=== PATIENT | female | born 1990 | race Caucasian/White ===

== ENCOUNTER → 2016-11-28 | Outpatient (CLI) | payer OTHER ==
[~2016-11-28] MED LIST: ACET25TA GT; AMBI12.52 PO; BUSP5TA PO; CELE10TA PO; CELE40TA PO; CLON1TAB PO; FOLIPOW28 XX; GABA100C PO; IBUP800T OR; KLON1TAB PO; LIDO1DIS2 TD; MEDR1VL IM; NEUR300C PO; PERCOCET; PRENTAB74 PO; SERO200T2 PO; SIME80TA PO; SUMA100T2 PO; TYLENOL #3 OR; ULTR50TA PO; VALI2TAB PO; VICO5TAB PO; ZONI50CA PO; [UNRECOGNIZED DRUG - CODE] PO; [UNRECOGNIZED DRUG - OTHER]; zonisamide PO
[2016-11-28 18:22] LABS: ALBUMIN 4.1 GM/DL (3.2-5.2); ALBUMIN/GLOBULIN RATIO 1.28 (1.00-1.93); ALKALINE PHOSPHATASE 48 U/L (45-117); ALT/SGPT 68 U/L (12-78); ANION GAP 9 MEQ/L (8-16); AST/SGOT 58 U/L (15-37); BILIRUBIN,TOTAL 0.2 MG/DL (0.2-1.0); BLOOD UREA NITROGEN 11 MG/DL (7-18); CALCIUM LEVEL 9.3 MG/DL (8.5-10.1); CARBON DIOXIDE LEVEL 24 MEQ/L (21-32); CHLORIDE LEVEL 110 MEQ/L (98-107); CREATININE FOR GFR 0.73 MG/DL (0.55-1.02); GLOMERULAR FILTRATION RATE > 60.0 (>60); GLUCOSE, FASTING 77 MG/DL (70-105); POTASSIUM SERUM 3.9 MEQ/L (3.5-5.1); SODIUM LEVEL 143 MEQ/L (136-145); TOTAL PROTEIN 7.3 GM/DL (6.4-8.2)
[2016-11-28 18:55] LABS: BASO % 0.5 % (0.0-1.0); EOS # 0.2 K/mm3 (0.0-0.50); EOS % 2.4 % (0.0-3.0); LARGE UNSTAINED CELL # 0.1 K/mm3 (0.0-0.4); LARGE UNSTAINED CELL % 1.9 % (0.0-4.0); LYMPH # 1.9 K/mm3 (1.5-6.5); LYMPH % 25.4 % (24.0-44.0); MEAN CORPUSCULAR VOLUME 90.9 fl (80.0-96.0); MONO # 0.4 K/mm3 (0.0-0.8); NEUTROPHILS # 4.9 K/mm3 (1.8-7.7); NEUTROPHILS % 64.8 % (36.0-66.0); PLATELET COUNT, AUTOMATED 245 k/mm3 (150-450); RED CELL DISTRIBUTION WIDTH 11.9 % (11.5-14.5); WHITE BLOOD COUNT 7.6 K/mm3 (4.0-10.0)
[2016-11-28 19:10] LABS: CONTROL LINE UCG INT CTR LINE PRESENT
[2016-11-29 08:43] LABS: HIV SCRN NEGATIVE (NEGATIVE); HIV SCRN1 NEGATIVE (NEGATIVE)
[2016-11-29 08:44] LABS: CONTROL LINE INT CTR LINE PRESENT
== END ==
LOC: M LAB 17:02
PROVIDERS: ATTEND Family Medicine
DX: F11.20 Opioid dependence, uncomplicated (principal)

== ENCOUNTER 2016-12-18 13:57 | Emergency (ER) | payer OTHER ==
[2016-12-18 14:51] LABS: BASO % 0.5 % (0.0-1.0); EOS # 0.3 K/mm3 (0.0-0.50); EOS % 5.2 % (0.0-3.0); LARGE UNSTAINED CELL # 0.1 K/mm3 (0.0-0.4); LARGE UNSTAINED CELL % 1.3 % (0.0-4.0); LYMPH # 2.3 K/mm3 (1.5-6.5); LYMPH % 35.5 % (24.0-44.0); MEAN CORPUSCULAR HEMOGLOBIN 30.6 pg (27.0-33.0); MEAN CORPUSCULAR HGB CONC 33.8 g/dl (32.0-36.5); MEAN CORPUSCULAR VOLUME 90.6 fl (80.0-96.0); MONO # 0.3 K/mm3 (0.0-0.8); MONO % 4.5 % (0.0-5.0); NEUTROPHILS # 3.3 K/mm3 (1.8-7.7); NEUTROPHILS % 53.1 % (36.0-66.0); PLATELET COUNT, AUTOMATED 204 k/mm3 (150-450); WHITE BLOOD COUNT 6.1 K/mm3 (4.0-10.0)
[2016-12-18 15:13] LABS: ALBUMIN 3.9 GM/DL (3.2-5.2); ALBUMIN/GLOBULIN RATIO 1.34 (1.00-1.93); ALKALINE PHOSPHATASE 40 U/L (45-117); ALT/SGPT 81 U/L (12-78); ANION GAP 9 MEQ/L (8-16); AST/SGOT 50 U/L (15-37); BILIRUBIN,TOTAL 0.3 MG/DL (0.2-1.0); BLOOD UREA NITROGEN 10 MG/DL (7-18); CALCIUM LEVEL 8.6 MG/DL (8.5-10.1); CARBON DIOXIDE LEVEL 22 MEQ/L (21-32); CHLORIDE LEVEL 113 MEQ/L (98-107); CREATININE FOR GFR 0.88 MG/DL (0.55-1.02); GLOMERULAR FILTRATION RATE > 60.0 (>60); GLUCOSE, FASTING 78 MG/DL (70-105); POTASSIUM SERUM 3.8 MEQ/L (3.5-5.1); SODIUM LEVEL 144 MEQ/L (136-145); TOTAL PROTEIN 6.8 GM/DL (6.4-8.2)
--- NOTE | 2016-12-18 15:43 | EDDOCDS ---
Nurse's Notes [facility] Name: Manju Nair Age: 26 yrs Sex: Female : 1990 Arrival Date: 12/18/2016 Time: 13:57 Bed TR8 Private MD: Diagnosis: Edema, unspecified Presentation: 12/18 14:00 Presenting complaint: Patient states: hand and feet swelling since Monday, painful. ttb Seen at and told to come to ER for evaluation. Adult Sepsis Screening: The patient does not have new or worsening altered mentation. Patient's respiratory rate is less than 22. Systolic blood pressure is greater than 100. Patient has a qSOFA score of 0- Negative Sepsis Screen. Suicide/Homicide risk assessment- the patient denies having any suicidal and/or homicidal ideations and does not present with any other emotional, behavioral or mental health complaints. 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 Transition of care: patient was not received from another setting of care. 14:00 Acuity: ARELI Level 3 ttb 14:00 Method Of Arrival: Walkin/Carried/Asstd ttb Triage Assessment: 14:04 General: Appears in no apparent distress, well nourished, well groomed, Behavior is ttb anxious, appropriate for age, cooperative, pleasant. Pain: Denies pain. Location: bilat hands and feet. HIV screening NA for this visit Offered previously. Neurological: Level of Consciousness is awake, alert, Reports numbness. Cardiovascular: Chest pain is denied. Respiratory: Airway is patent Respiratory effort is even, unlabored, Denies cough, shortness of breath. GI: Denies nausea, vomiting. Derm: Skin is normal. Musculoskeletal: Range of motion intact in all extremities. 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 Celexa 40 mg Oral tab 1 tab once daily (Last dose: 12/18/2016 07:00) 2. Diamox Sequels 500 mg Oral cpER 1 cap 2 times per day (Last dose: 12/18/2016 07:00) 3. zonisamide 25 mg oral cap dialy (Last dose: 12/17/2016 20:00) 4. Requip 0.5 mg Oral tab Once at dinner and HS (Last dose: 12/17/2016) 5. methadone 40 mg Oral TbSO 1 tab once daily pt started 3 weeks ago (Last dose: 12/18/2016 07:00) 6. ibuprofen 800 mg Oral tab 1 tab PRN (Last dose: 12/18/2016 07:00) 7. Depo-Provera IM every 3 mo - PMHx: opioid dependence; Hepatitis C; Pseudo Tumor Cerebri; - PSHx: Cesearean Section; Tonsillectomy; - Social history: Smoking status: Patient uses tobacco products, current every day smoker. Patient/guardian denies using alcohol, street drugs, No barriers to communication noted, The patient speaks fluent Spanish, Speaks appropriately for age. - Family history: Not pertinent. - : The pt / caregiver states he / she is not on anticoagulants. Home medication list is obtained from the patient. - Exposure Risk Screening:: None identified. Screenin:40 Screening information is obtained from the patient. Fall risk: No risks identified. ms18 Assistance ADL's: requires no assistance with activities of daily living. Abuse/DV Screen: The patient / caregiver reports he/she is: not in a situation that causes fear, pain or injury. Nutritional screening: No deficits noted. Advance Directives: There is no living will. home support is adequate. Assessment: 15:40 General: Appears in no apparent distress, comfortable, obese, Behavior is appropriate ms18 for age, cooperative. Pain: Denies pain. Neurological: Level of Consciousness is awake, alert, obeys commands, Oriented to person, place, time. Respiratory: Airway is patent Respiratory effort is even, unlabored, Respiratory pattern is regular. Derm: Skin is pink, warm & dry. Vital Signs: 13:58 BP 135 / 62; Pulse 78; Resp 16; Temp 98.1(O); Pulse Ox 98% on R/A; Weight 114.76 kg lr2 (R); Height 5 ft. 1 in. (154.94 cm) (R); Pain 0/10; 15:26 BP 112 / 58; Pulse 78; Resp 18; Temp 99.2(TE); Pulse Ox 97% on R/A; Pain 0/10; ar3 13:58 Body Mass Index 47.80 (114.76 kg, 154.94 cm) lr2 Vitals: 13:58 Log In Time: December 18, 2016 at 13:57. lr2 ED Course: 13:58 Patient visited by Olga Cain. lr2 13:58 Patient moved to Waiting lr2 13:59 Patient moved to Pre RCE lr2 14:01 Triage Initiated ttb 14:06 Patient moved to Triage 2 ttb 14:13 Parish Rosenberg PA is PHCP. btw 14:13 Lazarus Lyman MD is Attending Physician. btw 14:13 Patient visited by Parish Rosenberg PA. btw 14:19 Patient moved to I5 / M5 ar3 14:19 Patient moved to Triage 2 ar3 14:39 Patient moved to TR1 ar3 14:39 Complete Comphrensive Metabolic Sent. ar3 14:40 CBC with Diff Sent. ar3 14:42 [facility] Payment Agreement was scanned into [employer] and attached to record. jp5 15:23 Patient moved to PR1 / 25 ms18 15:27 Patient visited by Brooke Maria PCA. ar3 15:40 Patient visited by Donna Houston RN. ms18 15:40 Patient moved to TR8 ms18 15:40 The patient / caregiver is instructed regarding the plan of care and ED course. Patient ms18 has correct armband on for positive identification. Property sent home with patient. :Personal belongings accompany Pt. 15:40 No IV's were initiated during this patient's visit. No procedures done that require ms18 assistance. Order Results: Lab Order: CBC with Diff; SPEC'M 12/18/16 14:39 Test: WHITE BLOOD COUNT; Value: 6.1; Range: 4.0-10.0; Units: K/mm3; Status: F Test: RED BLOOD COUNT; Value: 4.23; Range: 4.00-5.40; Units: M/mm3; Status: F Test: HEMOGLOBIN; Value: 12.9; Range: 12.0-16.0; Units: g/dl; Status: F Test: HEMATOCRIT; Value: 38.3; Range: 36.0-47.0; Units: %; Status: F Test: MEAN CORPUSCULAR VOLUME; Value: 90.6; Range: 80.0-96.0; Units: fl; Status: F Test: MEAN CORPUSCULAR HEMOGLOBIN; Value: 30.6; Range: 27.0-33.0; Units: pg; Status: F Test: MEAN CORPUSCULAR HGB CONC; Value: 33.8; Range: 32.0-36.5; Units: g/dl; Status: F Test: RED CELL DISTRIBUTION WIDTH; Value: 12.0; Range: 11.5-14.5; Units: %; Status: F Test: PLATELET COUNT, AUTOMATED; Value: 204; Range: 150-450; Units: k/mm3; Status: F Test: NEUTROPHILS %; Value: 53.1; Range: 36.0-66.0; Units: %; Status: F Test: LYMPH %; Value: 35.5; Range: 24.0-44.0; Units: %; Status: F Test: MONO %; Value: 4.5; Range: 0.0-5.0; Units: %; Status: F Test: EOS %; Value: 5.2; Range: 0.0-3.0; Abnormal: Above high normal; Units: %; Status: F Test: BASO %; Value: 0.5; Range: 0.0-1.0; Units: %; Status: F Test: LARGE UNSTAINED CELL %; Value: 1.3; Range: 0.0-4.0; Units: %; Status: F Test: NEUTROPHILS #; Value: 3.3; Range: 1.8-7.7; Units: K/mm3; Status: F Test: LYMPH #; Value: 2.3; Range: 1.5-6.5; Units: K/mm3; Status: F Test: MONO #; Value: 0.3; Range: 0.0-0.8; Units: K/mm3; Status: F Test: EOS #; Value: 0.3; Range: 0.0-0.50; Units: K/mm3; Status: F Test: BASO #; Value: 0.0; Range: 0.0-0.2; Units: K/mm3; Status: F Test: LARGE UNSTAINED CELL #; Value: 0.1; Range: 0.0-0.4; Units: K/mm3; Status: F Lab Order: Complete Comphrensive Metabolic; SPEC'M 12/18/16 14:39 Test: GLUCOSE, FASTING; Value: 78; Range: 70-105; Units: MG/DL; Status: F Test: BLOOD UREA NITROGEN; Value: 10; Range: 7-18; Units: MG/DL; Status: F Test: CREATININE FOR GFR; Value: 0.88; Range: 0.55-1.02; Units: MG/DL; Status: F Test: GLOMERULAR FILTRATION RATE; Value: > 60.0; Range: >60; Status: F Test: SODIUM LEVEL; Value: 144; Range: 136-145; Units: MEQ/L; Status: F Test: POTASSIUM SERUM; Value: 3.8; Range: 3.5-5.1; Units: MEQ/L; Status: F Test: CHLORIDE LEVEL; Value: 113; Range: 98-107; Abnormal: Above high normal; Units: MEQ/L; Status: F Test: CARBON DIOXIDE LEVEL; Value: 22; Range: 21-32; Units: MEQ/L; Status: F Test: ANION GAP; Value: 9; Range: 8-16; Units: MEQ/L; Status: F Test: CALCIUM LEVEL; Value: 8.6; Range: 8.5-10.1; Units: MG/DL; Status: F Test: AST/SGOT; Value: 50; Range: 15-37; Abnormal: Above high normal; Units: U/L; Status: F Test: ALT/SGPT; Value: 81; Range: 12-78; Abnormal: Above high normal; Units: U/L; Status: F Test: ALKALINE PHOSPHATASE; Value: 40; Range: 45-117; Abnormal: Below low normal; Units: U/L; Status: F Test: BILIRUBIN,TOTAL; Value: 0.3; Range: 0.2-1.0; Units: MG/DL; Status: F Test: TOTAL PROTEIN; Value: 6.8; Range: 6.4-8.2; Units: GM/DL; Status: F Test: ALBUMIN; Value: 3.9; Range: 3.2-5.2; Units: GM/DL; Status: F Test: ALBUMIN/GLOBULIN RATIO; Value: 1.34; Range: 1.00-1.93; Status: F Test Note: ; Units are mL/min/1.73 m2 Chronic Kidney Disease Staging per NKF: Stage I & II GFR >=60 Normal to Mildly Decreased Stage III GFR 30-59 Moderately Decreased Stage IV GFR 15-29 Severely Decreased Stage V GFR <15 Very Little GFR Left ESRD GFR <15 on BURLAP WORKER Outcome: 15:23 Discharge ordered by Provider. btw 15:40 Discharge Assessment: Patient awake, alert and oriented x 3. No cognitive and/or ms18 functional deficits noted. Patient verbalized understanding of disposition instructions. patient administered narcotics - no. The following High Risk Discharge criteria are identified: None. Discharged to home ambulatory. Condition: good Condition: stable. Discharge instructions given to patient, Instructed on discharge instructions, follow up and referral plans. Demonstrated understanding of instructions, Pt was receptive of discharge instructions/ teaching. No special radiology studies were completed. 15:42 Patient left the ED. ms18 Signatures: Brooke Maria, HAN MECHANICAL ENGINEERING MANAGER ar3 Parish Rosenberg PA PA btw Lamar Vaughan, RN RN Donna HuRN RN ms18 Nayan Alvarez jp5 Olga Cain2 MTDPark
--- NOTE | 2016-12-18 15:43 | EDDOCDS ---
Physician Documentation [facility] Name: Manju Nair Age: 26 yrs Sex: Female : 1990 Arrival Date: 12/18/2016 Time: 13:57 Bed TR8 Private MD: Disposition: 12/18/16 15:23 Discharged to Home/Self Care. Impression: Edema, unspecified. - Condition is Stable. - Discharge Instructions: Edema, [id number]. - Medication Reconciliation, Local Pharmacy Hours form. - Follow up: Private Physician; When: Call to arrange an appointment; Reason: Further diagnostic work-up, Recheck today's complaints, Continuance of care. - Problem is new. - Symptoms are unchanged. Historical: - Allergies: Cipro PO; - Home Meds: 1. Celexa 40 mg Oral tab 1 tab once daily (Last dose: 12/18/2016 07:00) 2. Diamox Sequels 500 mg Oral cpER 1 cap 2 times per day (Last dose: 12/18/2016 07:00) 3. zonisamide 25 mg oral cap dialy (Last dose: 12/17/2016 20:00) 4. Requip 0.5 mg Oral tab Once at dinner and HS (Last dose: 12/17/2016) 5. methadone 40 mg Oral TbSO 1 tab once daily pt started 3 weeks ago (Last dose: 12/18/2016 07:00) 6. ibuprofen 800 mg Oral tab 1 tab PRN (Last dose: 12/18/2016 07:00) 7. Depo-Provera IM every 3 mo - PMHx: opioid dependence; Hepatitis C; Pseudo Tumor Cerebri; - PSHx: Cesearean Section; Tonsillectomy; - Social history: Smoking status: Patient uses tobacco products, current every day smoker. Patient/guardian denies using alcohol, street drugs, No barriers to communication noted, The patient speaks fluent Kazakh, Speaks appropriately for age. - Family history: Not pertinent. - : The pt / caregiver states he / she is not on anticoagulants. Home medication list is obtained from the patient. - Exposure Risk Screening:: None identified. 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 1 in. (154.94 cm) (R); Pain 0/10; 15:26 BP 112 / 58; Pulse 78; Resp 18; Temp 99.2(TE); Pulse Ox 97% on R/A; Pain 0/10; ar3 13:58 Body Mass Index 47.80 (114.76 kg, 154.94 cm) lr2 MDM: 14:34 CBC with Diff Ordered. EDMS 14:34 Complete Comphrensive Metabolic Ordered. EDMS 14:42 [facility] Payment Agreement was scanned into [employer] and attached to record. jp5 14:42 Financial registration complete. jp5 15:22 CBC with Diff Reviewed. btw 15:22 Complete Comphrensive Metabolic Reviewed. btw Signatures: Dispatcher [employer] EDMS Parish Rosenberg PA PA btw Lamar Vaughan RN RN ttb Donna Houston RN RN ms18 Nayan Alvarez jp5 The chart was reviewed and I authenticate all verbal orders and agree with the evaluation and treatment provided.Attachments: 14:42 [facility] Payment Agreement jp5 MTDD
--- NOTE | 2016-12-20 16:44 | EDDOCDS ---
Physician Documentation [facility] Name: Manju Nair Age: 26 yrs Sex: Female : 1990 Arrival Date: 12/18/2016 Time: 13:57 Bed TR8 Private MD: Disposition: 12/18/16 15:23 Discharged to Home/Self Care. Impression: Edema, unspecified. - Condition is Stable. - Discharge Instructions: Edema, [id number]. - Medication Reconciliation, Local Pharmacy Hours form. - Follow up: Private Physician; When: Call to arrange an appointment; Reason: Further diagnostic work-up, Recheck today's complaints, Continuance of care. - Problem is new. - Symptoms are unchanged. Historical: - Allergies: Cipro PO; - Home Meds: 1. Celexa 40 mg Oral tab 1 tab once daily (Last dose: 12/18/2016 07:00) 2. Diamox Sequels 500 mg Oral cpER 1 cap 2 times per day (Last dose: 12/18/2016 07:00) 3. zonisamide 25 mg oral cap dialy (Last dose: 12/17/2016 20:00) 4. Requip 0.5 mg Oral tab Once at dinner and HS (Last dose: 12/17/2016) 5. methadone 40 mg Oral TbSO 1 tab once daily pt started 3 weeks ago (Last dose: 12/18/2016 07:00) 6. ibuprofen 800 mg Oral tab 1 tab PRN (Last dose: 12/18/2016 07:00) 7. Depo-Provera IM every 3 mo - PMHx: opioid dependence; Hepatitis C; Pseudo Tumor Cerebri; - PSHx: Cesearean Section; Tonsillectomy; - Social history: Smoking status: Patient uses tobacco products, current every day smoker. Patient/guardian denies using alcohol, street drugs, No barriers to communication noted, The patient speaks fluent [place], Speaks appropriately for age. - Family history: Not pertinent. - : The pt / caregiver states he / she is not on anticoagulants. Home medication list is obtained from the patient. - Exposure Risk Screening:: None identified. 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 1 in. (154.94 cm) (R); Pain 0/10; 15:26 BP 112 / 58; Pulse 78; Resp 18; Temp 99.2(TE); Pulse Ox 97% on R/A; Pain 0/10; ar3 13:58 Body Mass Index 47.80 (114.76 kg, 154.94 cm) lr2 MDM: 14:34 CBC with Diff Ordered. EDMS 14:34 Complete Comphrensive Metabolic Ordered. EDMS 14:42 [facility] [place] [facility] Payment Agreement was scanned into [employer] and attached to record. jp5 14: Financial registration complete. jp5 15:22 CBC with Diff Reviewed. btw 15:22 Complete Comphrensive Metabolic Reviewed. bt 12/19 10:26 T-Sheet-- Draft Copy was scanned into [employer] and attached to record. gb Signatures: Dispatcher [employer] EDMS Kalpana Montero, Reg Reg gb Parish Rosenberg, JENNYFER PA btw Lamar Vaughan, RN RN ttb Donna HoustonRN RN ms18 Nayan Alvarez jp5 The chart was reviewed and I authenticate all verbal orders and agree with the evaluation and treatment provided.Attachments: 12/18 14:42 [facility] Payment Agreement jp5 12/19 10:26 T-Sheet-- Draft Copy gb Chart Complete MTDD
--- NOTE | 2016-12-20 16:44 | EDDOCDS ---
Nurse's Notes [facility] Name: Manju Nair Age: 26 yrs Sex: Female : 1990 Arrival Date: 12/18/2016 Time: 13:57 Bed TR8 Private MD: Diagnosis: Edema, unspecified Presentation: 12/18 14:00 Presenting complaint: Patient states: hand and feet swelling since Monday, painful. ttb Seen at and told to come to ER for evaluation. Adult Sepsis Screening: The patient does not have new or worsening altered mentation. Patient's respiratory rate is less than 22. Systolic blood pressure is greater than 100. Patient has a qSOFA score of 0- Negative Sepsis Screen. Suicide/Homicide risk assessment- the patient denies having any suicidal and/or homicidal ideations and does not present with any other emotional, behavioral or mental health complaints. Status: Patient is not a consulting services project manager or dependent. Transition of care: patient was not received from another setting of care. 14:00 Acuity: ARELI Level 3 ttb 14:00 Method Of Arrival: Walkin/Carried/Asstd ttb Triage Assessment: 14:04 General: Appears in no apparent distress, well nourished, well groomed, Behavior is ttb anxious, appropriate for age, cooperative, pleasant. Pain: Denies pain. Location: bilat hands and feet. HIV screening NA for this visit Offered previously. Neurological: Level of Consciousness is awake, alert, Reports numbness. Cardiovascular: Chest pain is denied. Respiratory: Airway is patent Respiratory effort is even, unlabored, Denies cough, shortness of breath. GI: Denies nausea, vomiting. Derm: Skin is normal. Musculoskeletal: Range of motion intact in all extremities. FALL INTERN: 14:04 LMP N/A - control method ttb Historical: - Allergies: Cipro PO; - Home Meds: 1. Celexa 40 mg Oral tab 1 tab once daily (Last dose: 12/18/2016 07:00) 2. Diamox Sequels 500 mg Oral cpER 1 cap 2 times per day (Last dose: 12/18/2016 07:00) 3. zonisamide 25 mg oral cap dialy (Last dose: 12/17/2016 20:00) 4. Requip 0.5 mg Oral tab Once at dinner and HS (Last dose: 12/17/2016) 5. methadone 40 mg Oral TbSO 1 tab once daily pt started 3 weeks ago (Last dose: 12/18/2016 07:00) 6. ibuprofen 800 mg Oral tab 1 tab PRN (Last dose: 12/18/2016 07:00) 7. Depo-Provera IM every 3 mo - PMHx: opioid dependence; Hepatitis C; Pseudo Tumor Cerebri; - PSHx: Cesearean Section; Tonsillectomy; - Social history: Smoking status: Patient uses tobacco products, current every day smoker. Patient/guardian denies using alcohol, street drugs, No barriers to communication noted, The patient speaks fluent Latvian, Speaks appropriately for age. - Family history: Not pertinent. - : The pt / caregiver states he / she is not on anticoagulants. Home medication list is obtained from the patient. - Exposure Risk Screening:: None identified. Screenin:40 Screening information is obtained from the patient. Fall risk: No risks identified. ms18 Assistance ADL's: requires no assistance with activities of daily living. Abuse/DV Screen: The patient / caregiver reports he/she is: not in a situation that causes fear, pain or injury. Nutritional screening: No deficits noted. Advance Directives: There is no living will. home support is adequate. Assessment: 15:40 General: Appears in no apparent distress, comfortable, obese, Behavior is appropriate ms18 for age, cooperative. Pain: Denies pain. Neurological: Level of Consciousness is awake, alert, obeys commands, Oriented to person, place, time. Respiratory: Airway is patent Respiratory effort is even, unlabored, Respiratory pattern is regular. Derm: Skin is pink, warm & dry. Vital Signs: 13:58 BP 135 / 62; Pulse 78; Resp 16; Temp 98.1(O); Pulse Ox 98% on R/A; Weight 114.76 kg lr2 (R); Height 5 ft. 1 in. (154.94 cm) (R); Pain 0/10; 15:26 BP 112 / 58; Pulse 78; Resp 18; Temp 99.2(TE); Pulse Ox 97% on R/A; Pain 0/10; ar3 13:58 Body Mass Index 47.80 (114.76 kg, 154.94 cm) lr2 Vitals: 13:58 Log In Time: December 18, 2016 at 13:57. lr2 ED Course: 13:58 Patient visited by Olga Cain. lr2 13:58 Patient moved to Waiting lr2 13:59 Patient moved to Pre RCE lr2 14:01 Triage Initiated ttb 14:06 Patient moved to Triage 2 ttb 14:13 Parish Rosenberg PA is PHCP. btw 14:13 Lazarus Lyman MD is Attending Physician. btw 14:13 Patient visited by Parish Rosenberg PA. btw 14:19 Patient moved to I5 / M5 ar3 14:19 Patient moved to Triage 2 ar3 14:39 Patient moved to TR1 ar3 14:39 Complete Comphrensive Metabolic Sent. ar3 14:40 CBC with Diff Sent. ar3 14:42 [facility] [place] was scanned into [employer] and attached to record. jp5 15:23 Patient moved to PR1 / 25 ms18 15:27 Patient visited by Brooke Maria PCA. ar3 15:40 Patient visited by Donna Houston RN. ms18 15:40 Patient moved to TR8 ms18 15:40 The patient / caregiver is instructed regarding the plan of care and ED course. Patient ms18 has correct armband on for positive identification. Property sent home with patient. :Personal belongings accompany Pt. 15:40 No IV's were initiated during this patient's visit. No procedures done that require ms18 assistance. 12/19 10:26 T-Sheet-- Draft Copy was scanned into [employer] and attached to record. gb Order Results: Lab Order: CBC with Diff; SPEC'M 12/18/16 14:39 Test: WHITE BLOOD COUNT; Value: 6.1; Range: 4.0-10.0; Units: K/mm3; Status: F Test: RED BLOOD COUNT; Value: 4.23; Range: 4.00-5.40; Units: M/mm3; Status: F Test: HEMOGLOBIN; Value: 12.9; Range: 12.0-16.0; Units: g/dl; Status: F Test: HEMATOCRIT; Value: 38.3; Range: 36.0-47.0; Units: %; Status: F Test: MEAN CORPUSCULAR VOLUME; Value: 90.6; Range: 80.0-96.0; Units: fl; Status: F Test: MEAN CORPUSCULAR HEMOGLOBIN; Value: 30.6; Range: 27.0-33.0; Units: pg; Status: F Test: MEAN CORPUSCULAR HGB CONC; Value: 33.8; Range: 32.0-36.5; Units: g/dl; Status: F Test: RED CELL DISTRIBUTION WIDTH; Value: 12.0; Range: 11.5-14.5; Units: %; Status: F Test: PLATELET COUNT, AUTOMATED; Value: 204; Range: 150-450; Units: k/mm3; Status: F Test: NEUTROPHILS %; Value: 53.1; Range: 36.0-66.0; Units: %; Status: F Test: LYMPH %; Value: 35.5; Range: 24.0-44.0; Units: %; Status: F Test: MONO %; Value: 4.5; Range: 0.0-5.0; Units: %; Status: F Test: EOS %; Value: 5.2; Range: 0.0-3.0; Abnormal: Above high normal; Units: %; Status: F Test: BASO %; Value: 0.5; Range: 0.0-1.0; Units: %; Status: F Test: LARGE UNSTAINED CELL %; Value: 1.3; Range: 0.0-4.0; Units: %; Status: F Test: NEUTROPHILS #; Value: 3.3; Range: 1.8-7.7; Units: K/mm3; Status: F Test: LYMPH #; Value: 2.3; Range: 1.5-6.5; Units: K/mm3; Status: F Test: MONO #; Value: 0.3; Range: 0.0-0.8; Units: K/mm3; Status: F Test: EOS #; Value: 0.3; Range: 0.0-0.50; Units: K/mm3; Status: F Test: BASO #; Value: 0.0; Range: 0.0-0.2; Units: K/mm3; Status: F Test: LARGE UNSTAINED CELL #; Value: 0.1; Range: 0.0-0.4; Units: K/mm3; Status: F Lab Order: Complete Comphrensive Metabolic; SPEC'M 12/18/16 14:39 Test: GLUCOSE, FASTING; Value: 78; Range: 70-105; Units: MG/DL; Status: F Test: BLOOD UREA NITROGEN; Value: 10; Range: 7-18; Units: MG/DL; Status: F Test: CREATININE FOR GFR; Value: 0.88; Range: 0.55-1.02; Units: MG/DL; Status: F Test: GLOMERULAR FILTRATION RATE; Value: > 60.0; Range: >60; Status: F Test: SODIUM LEVEL; Value: 144; Range: 136-145; Units: MEQ/L; Status: F Test: POTASSIUM SERUM; Value: 3.8; Range: 3.5-5.1; Units: MEQ/L; Status: F Test: CHLORIDE LEVEL; Value: 113; Range: 98-107; Abnormal: Above high normal; Units: MEQ/L; Status: F Test: CARBON DIOXIDE LEVEL; Value: 22; Range: 21-32; Units: MEQ/L; Status: F Test: ANION GAP; Value: 9; Range: 8-16; Units: MEQ/L; Status: F Test: CALCIUM LEVEL; Value: 8.6; Range: 8.5-10.1; Units: MG/DL; Status: F Test: AST/SGOT; Value: 50; Range: 15-37; Abnormal: Above high normal; Units: U/L; Status: F Test: ALT/SGPT; Value: 81; Range: 12-78; Abnormal: Above high normal; Units: U/L; Status: F Test: ALKALINE PHOSPHATASE; Value: 40; Range: 45-117; Abnormal: Below low normal; Units: U/L; Status: F Test: BILIRUBIN,TOTAL; Value: 0.3; Range: 0.2-1.0; Units: MG/DL; Status: F Test: TOTAL PROTEIN; Value: 6.8; Range: 6.4-8.2; Units: GM/DL; Status: F Test: ALBUMIN; Value: 3.9; Range: 3.2-5.2; Units: GM/DL; Status: F Test: ALBUMIN/GLOBULIN RATIO; Value: 1.34; Range: 1.00-1.93; Status: F Test Note: ; Units are mL/min/1.73 m2 Chronic Kidney Disease Staging per NKF: Stage I & II GFR >=60 Normal to Mildly Decreased Stage III GFR 30-59 Moderately Decreased Stage IV GFR 15-29 Severely Decreased Stage V GFR <15 Very Little GFR Left ESRD GFR <15 on EMAIL MARKETER Outcome: 12/18 15:23 Discharge ordered by Provider. btw 15:40 Discharge Assessment: Patient awake, alert and oriented x 3. No cognitive and/or ms18 functional deficits noted. Patient verbalized understanding of disposition instructions. patient administered narcotics - no. The following High Risk Discharge criteria are identified: None. Discharged to home ambulatory. Condition: good Condition: stable. Discharge instructions given to patient, Instructed on discharge instructions, follow up and referral plans. Demonstrated understanding of instructions, Pt was receptive of discharge instructions/ teaching. No special radiology studies were completed. 15:42 Patient left the ED. ms18 Signatures: Kalpana Montero, Reg Reg gb Crow, Brooke, [employer] DAMAGE INSURANCE APPRAISER [employer] INSURANCE APPRAISER ar3 Parish Rosenberg PA PA btw Lamar Vaughan, RN RN Donna Hu RN RN ms18 Nayan Alvarze jp5 Olga Cain2 Chart Complete MTDD
--- NOTE | 2016-12-20 16:44 | EDDOCDS ---
Physician Documentation [facility] Name: Manju Nair Age: 26 yrs Sex: Female : 1990 Arrival Date: 12/18/2016 Time: 13:57 Bed TR8 Private MD: Disposition: 12/18/16 15:23 Discharged to Home/Self Care. Impression: Edema, unspecified. - Condition is Stable. - Discharge Instructions: Edema, [id number]. - Medication Reconciliation, Local Pharmacy Hours form. - Follow up: Private Physician; When: Call to arrange an appointment; Reason: Further diagnostic work-up, Recheck today's complaints, Continuance of care. - Problem is new. - Symptoms are unchanged. Historical: - Allergies: Cipro PO; - Home Meds: 1. Celexa 40 mg Oral tab 1 tab once daily (Last dose: 12/18/2016 07:00) 2. Diamox Sequels 500 mg Oral cpER 1 cap 2 times per day (Last dose: 12/18/2016 07:00) 3. zonisamide 25 mg oral cap dialy (Last dose: 12/17/2016 20:00) 4. Requip 0.5 mg Oral tab Once at dinner and HS (Last dose: 12/17/2016) 5. methadone 40 mg Oral TbSO 1 tab once daily pt started 3 weeks ago (Last dose: 12/18/2016 07:00) 6. ibuprofen 800 mg Oral tab 1 tab PRN (Last dose: 12/18/2016 07:00) 7. Depo-Provera IM every 3 mo - PMHx: opioid dependence; Hepatitis C; Pseudo Tumor Cerebri; - PSHx: Cesearean Section; Tonsillectomy; - Social history: Smoking status: Patient uses tobacco products, current every day smoker. Patient/guardian denies using alcohol, street drugs, No barriers to communication noted, The patient speaks fluent Icelandic, Speaks appropriately for age. - Family history: Not pertinent. - : The pt / caregiver states he / she is not on anticoagulants. Home medication list is obtained from the patient. - Exposure Risk Screening:: None identified. GEOSPATIAL ANALYST: 12/18 14:04 LMP N/A - control method ttb Vital Signs: 13:58 BP 135 / 62; Pulse 78; Resp 16; Temp 98.1(O); Pulse Ox 98% on R/A; Weight 114.76 kg / lr2 253 lbs (R); Height 5 ft. 1 in. (154.94 cm) (R); Pain 0/10; 15:26 BP 112 / 58; Pulse 78; Resp 18; Temp 99.2(TE); Pulse Ox 97% on R/A; Pain 0/10; ar3 13:58 Body Mass Index 47.80 (114.76 kg, 154.94 cm) lr2 MDM: 14:34 CBC with Diff Ordered. EDMS 14:34 Complete Comphrensive Metabolic Ordered. EDMS 14:42 [facility] [place] Payment Agreement was scanned into TipTap and attached to record. jp5 14: Financial registration complete. jp5 15:22 CBC with Diff Reviewed. btw 15:22 Complete Comphrensive Metabolic Reviewed. bt 12/19 10:26 T-Sheet-- Draft Copy was scanned into TipTap and attached to record. gb Signatures: Dispatcher [employer] EDMS Kalpana Montero, Reg Reg gb Parish Rosenberg, JENNYFER PA btw Lamar Vaughan, RN RN ttb Donna HoustonRN RN ms18 Nayan Alvarez jp5 The chart was reviewed and I authenticate all verbal orders and agree with the evaluation and treatment provided.Attachments: 12/18 14:42 [facility] Payment Agreement jp5 12/19 10:26 T-Sheet-- Draft Copy gb Chart Complete MTDD
== END 2016-12-18 15:42 | disposition home or self-care (01) ==
LOC: M ED 13:57
DX: R60.0 Localized edema (principal); B19.20 Unspecified viral hepatitis C without hepatic coma; F11.21 Opioid dependence, in remission; G93.2 Benign intracranial hypertension; Z79.899 Other long term (current) drug therapy; Z79.3 Long term (current) use of hormonal contraceptives; Z88.1 Allergy status to other antibiotic agents; F17.210 Nicotine dependence, cigarettes, uncomplicated

== ENCOUNTER 2017-03-22 08:10 | Emergency (ER) | payer OTHER ==
[~2017-03-22] VITALS: Ht 154.9 cm; Wt 108.9 kg
[2017-03-22] MEDS ORDERED: METH40TA PO (08:21)
--- NOTE | 2017-03-22 09:26 | REP ---
Acute abdominal series including PA chest and three views of the abdomen and supine and upright positions: Upright PA chest: Comparison is 03/12/2014. The lung del real are clear. Cardiac size is normal. The nataliia, mediastinum, bony thorax are unremarkable and unchanged. No free subdiaphragmatic air. Impression: Negative PA chest. Abdomen, supine upright views: The bowel gas pattern is normal. There is a moderate volume of fecal residue in the colon. There are no unusual calcifications. Skeletal structures and soft tissues otherwise are unremarkable. Impression: Normal bowel gas pattern. Signed by Washington Colon MD 03/22/2017 09:18 A
[2017-03-22] MEDS ORDERED: METHYLNALTREXONE BROMIDE 12 MG/0.6 ML VIAL (RELISTOR) SC ONE (09:30)
[2017-03-22] MEDS ORDERED: BACT800T5 PO (10:35)
[2017-03-22] MEDS ORDERED: FLUC150T PO (10:35)
[2017-03-22] MEDS ORDERED: RELI150T PO (10:35)
[2017-03-22 10:41] VITALS: BP 147/70
== END 2017-03-22 10:54 | disposition home or self-care (01) ==
LOC: M ED 09:05
DX: K59.03 Drug induced constipation (principal); F17.200 Nicotine dependence, unspecified, uncomplicated; Z79.899 Other long term (current) drug therapy; Z79.3 Long term (current) use of hormonal contraceptives; Z88.1 Allergy status to other antibiotic agents

== ENCOUNTER → 2017-06-16 | Outpatient (REF) | payer OTHER ==
[~2017-06-16] MED LIST changes: +AUGM875T28 PO; +BACT800T5 PO; +FLUC150T PO; +METH40TA PO; +RELI150T PO; +TESS100C PO
[2017-06-16 18:06] LABS: CONTROL LINE UCG INT CTR LINE PRESENT
== END ==
LOC: M LAB REF 14:15
PROVIDERS: ATTEND Physician Assistant Medical
DX: N39.0 Urinary tract infection, site not specified (principal)

== ENCOUNTER 2017-08-19 11:31 | Emergency (ER) | payer OTHER ==
[~2017-08-19] VITALS: Ht 154.9 cm; Wt 117.0 kg
[~2017-08-19 11:31] MED LIST changes: -AUGM875T28 PO; -TESS100C PO
[2017-08-19] MEDS ORDERED: AUGM875T28 PO (13:04)
[2017-08-19] MEDS ORDERED: TESS100C PO (13:04)
[2017-08-19 13:13] VITALS: BP 131/71
--- NOTE | 2017-08-19 14:20 | REP ---
Chest x-ray: Two views. History: Cough . Comparison study: March 22, 2017 . Findings: The lungs are well inflated and free of infiltrate. The pleural angles are sharp. The heart size is normal. Pulmonary vasculature is not increased. No significant bony abnormality is seen. Impression: Negative chest x-ray. Signed by Usama Livingston MD 08/19/2017 04:52 P
== END 2017-08-19 13:14 | disposition home or self-care (01) ==
LOC: M ED 11:31
DX: J01.90 Acute sinusitis, unspecified (principal); Z79.899 Other long term (current) drug therapy; Z88.1 Allergy status to other antibiotic agents; F17.210 Nicotine dependence, cigarettes, uncomplicated

== ENCOUNTER → 2017-10-27 | Outpatient (CLI) | payer OTHER ==
[2017-10-27 13:47] LABS: HEMATOCRIT 39.6 % (36.0-47.0); HEMOGLOBIN 13.3 g/dl (12.0-16.0); MEAN CORPUSCULAR HEMOGLOBIN 30.2 pg (27.0-33.0); MEAN CORPUSCULAR HGB CONC 33.6 g/dl (32.0-36.5); MEAN CORPUSCULAR VOLUME 89.8 fl (80.0-96.0); PLATELET COUNT, AUTOMATED 220 10^3/uL (150-450); RED BLOOD COUNT 4.41 10^6/uL (4.00-5.40); RED CELL DISTRIBUTION WIDTH 11.6 % (11.5-14.5); WHITE BLOOD COUNT 9.6 10^3/uL (4.0-10.0)
[2017-10-27 13:52] LABS: ALBUMIN 4.1 GM/DL (3.2-5.2); ALBUMIN/GLOBULIN RATIO 1.28 (1.00-1.93); ALKALINE PHOSPHATASE 58 U/L (45-117); ALT/SGPT 62 U/L (12-78); ANION GAP 4 MEQ/L (8-16); AST/SGOT 41 U/L (7-37); BILIRUBIN,TOTAL 0.4 MG/DL (0.2-1.0); BLOOD UREA NITROGEN 12 MG/DL (7-18); CALCIUM LEVEL 8.9 MG/DL (8.5-10.1); CARBON DIOXIDE LEVEL 33 MEQ/L (21-32); CHLORIDE LEVEL 105 MEQ/L (98-107); GLOMERULAR FILTRATION RATE > 60.0 (>60); GLUCOSE, FASTING 66 MG/DL (70-105); POTASSIUM SERUM 3.8 MEQ/L (3.5-5.1); SODIUM LEVEL 142 MEQ/L (136-145); TOTAL PROTEIN 7.3 GM/DL (6.4-8.2)
[2017-10-27 14:12] LABS: HEPATITIS B SURFACE ANTIGEN NEGATIVE (NEGATIVE)
[2017-10-27 14:41] LABS: HIV 1&2 SCREEN CENTAUR NEGATIVE (NEGATIVE)
[2017-10-27 14:54] LABS: HEPATITIS C VIRUS ABY INDEX > 11.0 INDEX (<0.8)
[2017-10-27 16:16] LABS: CHLAMYDIA DNA AMPLIFICATION NEGATIVE (NEGATIVE); GC DNA AMPLIFICATION NEGATIVE (NEGATIVE)
[2017-11-01 00:07] LABS: HCV RNA NAA QUALITATIVE Positive (Negative)
== END ==
LOC: M LAB 12:40
DX: F11.20 Opioid dependence, uncomplicated (principal)
CPT/HCPCS: 93005

== ENCOUNTER → 2018-01-16 | Outpatient (REF) | payer OTHER ==
[2018-01-16 12:48] LABS: ALBUMIN 3.8 GM/DL (3.2-5.2); ALBUMIN/GLOBULIN RATIO 1.06 (1.00-1.93); ALKALINE PHOSPHATASE 59 U/L (45-117); ALT/SGPT 37 U/L (12-78); AST/SGOT 29 U/L (7-37); BILIRUBIN,DIRECT 0.1 MG/DL (0.0-0.2); BILIRUBIN,TOTAL 0.3 MG/DL (0.2-1.0); TOTAL PROTEIN 7.4 GM/DL (6.4-8.2)
[2018-01-18 08:06] LABS: ALPHA 2-MACROGLOBULIN 275 mg/dL (110-276); ALT 35 IU/L (0-40); APOLIPOPROTEIN A-1 146 mg/dL (116-209); FIBROSIS SCORE 0.11 (0.00-0.21); GGT 26 IU/L (0-60); HAPTOGLOBIN 160 mg/dL (34-200); NECROINFLAM SCORE 0.14 (0.00-0.17); NECROINFLAMM GRADE A0-No activity (.); TOTAL BILIRUBIN 0.3 mg/dL (0.0-1.2)
== END ==
LOC: M SFHCPLAZ 11:29
DX: B18.2 Chronic viral hepatitis C (principal)
CPT/HCPCS: 83010

== ENCOUNTER → 2018-02-22 | Outpatient (REF) | payer OTHER ==
[2018-02-22 12:45] LABS: ALBUMIN 3.9 GM/DL (3.2-5.2); ALBUMIN/GLOBULIN RATIO 1.15 (1.00-1.93); ALKALINE PHOSPHATASE 61 U/L (45-117); ALT/SGPT 25 U/L (12-78); AST/SGOT 21 U/L (7-37); BILIRUBIN,DIRECT 0.1 MG/DL (0.0-0.2); BILIRUBIN,TOTAL 0.4 MG/DL (0.2-1.0); TOTAL PROTEIN 7.3 GM/DL (6.4-8.2)
[2018-02-26 08:06] LABS: HEPATITIS C QUANTITATION HCV Not Detected IU/mL (.)
== END ==
LOC: M SFHCPLAZ 08:57
DX: B18.2 Chronic viral hepatitis C (principal)

== ENCOUNTER → 2018-04-04 | Outpatient (REF) | payer OTHER ==
[2018-04-04 13:22] LABS: APPEARANCE, URINE CLOUDY (CLEAR); BACTERIA, URINE AUTO 2+ (NEGATIVE); BILIRUBIN, URINE AUTO NEGATIVE (NEGATIVE); BLOOD, URINE BLOOD NEGATIVE (NEGATIVE); COLOR, URINE YELLOW (YELLOW); GLUCOSE, URINE (UA) AUTO NEGATIVE (NEGATIVE); KETONE, URINE AUTO NEGATIVE (NEGATIVE); LEUKOCYTE ESTERASE, URINE AUTO 1+ (NEGATIVE); MUCUS, URINE SMALL (NEGATIVE); NITRITE, URINE AUTO POSITIVE (NEGATIVE); PROTEIN, URINE AUTO NEGATIVE (NEGATIVE); RBC, URINE AUTO 4 /HPF (0-3); SPECIFIC GRAVITY URINE AUTO 1.024 (1.002-1.035); SQUAMOUS EPITHELIAL CELL UR AU 11 /HPF (0-6); WBC, URINE AUTO 32 /HPF (0-3)
== END ==
LOC: M LAB REF 12:58
DX: N39.0 Urinary tract infection, site not specified (principal)

== ENCOUNTER → 2018-10-08 | Outpatient (REF) | payer OTHER ==
[~2018-10-08] MED LIST changes: +ALBU83IN; +AUGM875T28 PO; +SERT-155; +TESS100C PO
[2018-10-08 16:21] LABS: ALBUMIN 3.6 GM/DL (3.2-5.2); ALT/SGPT 31 U/L (12-78); BILIRUBIN,TOTAL 0.3 MG/DL (0.2-1.0); BLOOD UREA NITROGEN 12 MG/DL (7-18); CALCIUM LEVEL 8.2 MG/DL (8.5-10.1); CARBON DIOXIDE LEVEL 29 MEQ/L (21-32); CHLORIDE LEVEL 105 MEQ/L (98-107); CREATININE FOR GFR 0.76 MG/DL (0.55-1.30); GLOMERULAR FILTRATION RATE > 60.0 (>60); GLUCOSE, FASTING 74 MG/DL (70-100); SODIUM LEVEL 141 MEQ/L (136-145); TOTAL PROTEIN 6.7 GM/DL (6.4-8.2)
[2018-10-08 16:31] LABS: BASO # 0.1 10^3/uL (0.0-0.2); BASO % 0.7 % (0.0-1.0); EOS # 0.2 10^3/uL (0.0-0.50); EOS % 2.6 % (0.0-3.0); HEMATOCRIT 38.9 % (36.0-47.0); HEMOGLOBIN 12.6 g/dl (12.0-15.5); LYMPH # 2.3 10^3/uL (1.5-4.5); LYMPH % 30.8 % (24.0-44.0); MEAN CORPUSCULAR HEMOGLOBIN 30.6 pg (27.0-33.0); MEAN CORPUSCULAR HGB CONC 32.4 g/dl (32.0-36.5); MEAN CORPUSCULAR VOLUME 94.4 fl (80.0-96.0); MONO # 0.5 10^3/uL (0.0-0.8); MONO % 6.7 % (0.0-5.0); NEUTROPHILS # 4.4 10^3/uL (1.8-7.7); NEUTROPHILS % 58.7 % (36.0-66.0); PLATELET COUNT, AUTOMATED 190 10^3/uL (150-450); RED BLOOD COUNT 4.12 10^6/uL (4.00-5.40); WHITE BLOOD COUNT 7.4 10^3/uL (4.0-10.0)
[2018-10-11 14:15] LABS: HEPATITIS C QUANTITATION HCV Not Detected IU/mL (.)
== END ==
LOC: M SFHCPLAZ 14:01
PROVIDERS: ATTEND Internal Medicine Infectious Disease
DX: B18.2 Chronic viral hepatitis C (principal)

== ENCOUNTER 2018-10-25 13:41 | Emergency (ER) | payer OTHER ==
[~2018-10-25] VITALS: Ht 154.9 cm; Wt 118.2 kg
[~2018-10-25 13:41] MED LIST changes: -ALBU83IN; -SERT-155
[2018-10-25 13:42] VITALS: BP 117/63
[2018-10-25] MEDS ORDERED: ALBU83IN (13:50)
[2018-10-25] MEDS ORDERED: SERT-155 (13:50)
[2018-10-25 14:50] LABS: HEMATOCRIT 36.7 % (36.0-47.0); HEMOGLOBIN 12.5 g/dl (12.0-15.5); MEAN CORPUSCULAR HEMOGLOBIN 30.7 pg (27.0-33.0); MEAN CORPUSCULAR HGB CONC 34.1 g/dl (32.0-36.5); MEAN CORPUSCULAR VOLUME 90.2 fl (80.0-96.0); PLATELET COUNT, AUTOMATED 180 10^3/uL (150-450); RED BLOOD COUNT 4.07 10^6/uL (4.00-5.40); WHITE BLOOD COUNT 7.4 10^3/uL (4.0-10.0)
[2018-10-25 15:02] LABS: HCG, SERUM QUALITATIVE NEGATIVE (NEGATIVE)
[2018-10-25 15:18] LABS: ALBUMIN 3.6 GM/DL (3.2-5.2); ALT/SGPT 42 U/L (12-78); BILIRUBIN,DIRECT 0.1 MG/DL (0.0-0.2); BILIRUBIN,TOTAL 0.5 MG/DL (0.2-1.0); BLOOD UREA NITROGEN 9 MG/DL (7-18); CALCIUM LEVEL 8.5 MG/DL (8.5-10.1); CARBON DIOXIDE LEVEL 30 MEQ/L (21-32); CHLORIDE LEVEL 105 MEQ/L (98-107); GLOMERULAR FILTRATION RATE > 60.0 (>60); GLUCOSE, FASTING 96 MG/DL (70-100); POTASSIUM SERUM 3.8 MEQ/L (3.5-5.1); SALICYLATE LEVEL 3.5 MG/DL (5.0-30.0); SODIUM LEVEL 140 MEQ/L (136-145); THYROID STIMULATING HORMONE 0.877 uIU/ML (0.358-3.740); TOTAL PROTEIN 6.6 GM/DL (6.4-8.2)
[2018-10-25 15:19] LABS: ACETAMINOPHEN LEVEL < 2.0 UG/ML (10.0-30.0); ETHYL ALCOHOL (ETHANOL) < 0.003 % (0.000-0.010)
[2018-10-25 15:45] LABS: AMPHETAMINES LEVEL URINE POSITIVE (NEGATIVE); BARBITURATES URINE NEGATIVE (NEGATIVE); BENZODIAZEPINES URINE POSITIVE (NEGATIVE); CANNABINOIDS URINE POSITIVE (NEGATIVE); COCAINE METABOLITE URINE NEGATIVE (NEGATIVE); METHADONE URINE POSITIVE (NEGATIVE); OPIATES URINE POSITIVE (NEGATIVE); PHENCYCLIDINE URINE NEGATIVE (NEGATIVE)
== END 2018-10-25 17:13 | disposition home or self-care (01) ==
LOC: M ED 13:41
DX: F32.9 Major depressive disorder, single episode, unspecified (principal); F19.10 Other psychoactive substance abuse, uncomplicated; Z86.19 Personal history of other infectious and parasitic diseases; F90.9 Attention-deficit hyperactivity disorder, unspecified type; G93.2 Benign intracranial hypertension; Z72.0 Tobacco use; Z79.899 Other long term (current) drug therapy; Z88.1 Allergy status to other antibiotic agents
CPT/HCPCS: 80048; 80076; 80307; 84443; 84703; 85027; 99284; G0480

== ENCOUNTER → 2018-10-29 | Outpatient (CLI) | payer OTHER ==
[~2018-10-29] MED LIST changes: +ALBU83IN; +SERT-155
[2018-10-29 14:33] LABS: HEMATOCRIT 37.2 % (36.0-47.0); HEMOGLOBIN 12.2 g/dl (12.0-15.5); MEAN CORPUSCULAR HEMOGLOBIN 30.7 pg (27.0-33.0); MEAN CORPUSCULAR HGB CONC 32.8 g/dl (32.0-36.5); MEAN CORPUSCULAR VOLUME 93.5 fl (80.0-96.0); PLATELET COUNT, AUTOMATED 201 10^3/uL (150-450); RED BLOOD COUNT 3.98 10^6/uL (4.00-5.40); WHITE BLOOD COUNT 8.2 10^3/uL (4.0-10.0)
[2018-10-29 15:03] LABS: ALBUMIN 3.5 GM/DL (3.2-5.2); ALT/SGPT 41 U/L (12-78); BILIRUBIN,TOTAL 0.2 MG/DL (0.2-1.0); BLOOD UREA NITROGEN 10 MG/DL (7-18); CALCIUM LEVEL 8.6 MG/DL (8.5-10.1); CARBON DIOXIDE LEVEL 32 MEQ/L (21-32); CHLORIDE LEVEL 106 MEQ/L (98-107); CREATININE FOR GFR 0.76 MG/DL (0.55-1.30); GLOMERULAR FILTRATION RATE > 60.0 (>60); GLUCOSE, FASTING 63 MG/DL (70-100); POTASSIUM SERUM 4.2 MEQ/L (3.5-5.1); SODIUM LEVEL 144 MEQ/L (136-145); TOTAL PROTEIN 6.5 GM/DL (6.4-8.2)
[2018-10-29 15:24] LABS: HEPATITIS B SURFACE ANTIGEN NEGATIVE (NEGATIVE)
[2018-10-29 15:39] LABS: HCG, SERUM QUALITATIVE NEGATIVE (NEGATIVE)
[2018-10-29 15:52] LABS: HIV 1&2 SCREEN CENTAUR NEGATIVE (NEGATIVE)
[2018-10-29 16:06] LABS: HEPATITIS C VIRUS ABY INDEX > 11.0 INDEX (<0.8)
[2018-10-29 16:31] LABS: CHLAMYDIA DNA AMPLIFICATION NEGATIVE (NEGATIVE); GC DNA AMPLIFICATION NEGATIVE (NEGATIVE)
--- NOTE | 2018-10-29 20:39 | ECGEPIP ---
Stationary ECG Study [facility] Test Date: 2018-10-29 Pat Name: MARIA R DOUGLAS Department: Room: - Gender: F Asian Studies Program Chair: LUIS : 1990 Requested By: Washington Betancourt Order Number: [id number] Reading MD: Herbert Pina Measurements Intervals [place] Rate: 66 P: 58 WV: 166 QRS: 43 QRSD: 101 T: 64 QT: 420 QTc: 443 Interpretive Statements SINUS RHYTHM Within normal limits. Electronically Signed On 10-29-2018 20:39:36 EST by Herbert Pnia
== END ==
LOC: M LAB 13:43
PROVIDERS: ATTEND Family Medicine
DX: F11.20 Opioid dependence, uncomplicated (principal)

== ENCOUNTER → 2018-11-07 | Outpatient (REF) | payer OTHER ==
[2018-11-07 19:00] LABS: BASO # 0.1 10^3/uL (0.0-0.2); BASO % 0.6 % (0.0-1.0); EOS # 0.1 10^3/uL (0.0-0.50); EOS % 1.3 % (0.0-3.0); HEMATOCRIT 40.3 % (36.0-47.0); HEMOGLOBIN 13.5 g/dl (12.0-15.5); LYMPH # 2.4 10^3/uL (1.5-4.5); LYMPH % 24.3 % (24.0-44.0); MEAN CORPUSCULAR HGB CONC 33.5 g/dl (32.0-36.5); MEAN CORPUSCULAR VOLUME 92.6 fl (80.0-96.0); MONO # 0.5 10^3/uL (0.0-0.8); MONO % 5.2 % (0.0-5.0); NEUTROPHILS # 6.6 10^3/uL (1.8-7.7); NEUTROPHILS % 68.4 % (36.0-66.0); PLATELET COUNT, AUTOMATED 224 10^3/uL (150-450); RED BLOOD COUNT 4.35 10^6/uL (4.00-5.40); WHITE BLOOD COUNT 9.7 10^3/uL (4.0-10.0)
[2018-11-07 19:11] LABS: ALBUMIN 4.1 GM/DL (3.2-5.2); ALT/SGPT 28 U/L (12-78); BILIRUBIN,TOTAL 0.4 MG/DL (0.2-1.0); BLOOD UREA NITROGEN 12 MG/DL (7-18); CALCIUM LEVEL 8.6 MG/DL (8.5-10.1); CARBON DIOXIDE LEVEL 29 MEQ/L (21-32); CHLORIDE LEVEL 104 MEQ/L (98-107); CHOLESTEROL LEVEL 182 MG/DL (<200); CHOLESTEROL RISK RATIO 3.714 (<5); CREATININE FOR GFR 0.72 MG/DL (0.55-1.30); GLOMERULAR FILTRATION RATE > 60.0 (>60); GLUCOSE, FASTING 74 MG/DL (70-100); HDL CHOLESTEROL 49 MG/DL (>40); LDL CHOLESTEROL 115 MG/DL (<100); NON-HDL-C 133 MG/DL; POTASSIUM SERUM 4.2 MEQ/L (3.5-5.1); SODIUM LEVEL 139 MEQ/L (136-145); TOTAL PROTEIN 7.1 GM/DL (6.4-8.2); TRIGLYCERIDES LEVEL 90 MG/DL (<150)
[2018-11-07 19:14] LABS: TOTAL 25(OH) VITAMIN D 17.2 NG/ML (30.0-100.0)
[2018-11-07 19:33] LABS: HEMOGLOBIN A1c 4.7 %
== END ==
LOC: M LAB REF 18:40
PROVIDERS: ATTEND Nurse Practitioner Family
DX: Z13.9 Encounter for screening, unspecified (principal)

== ENCOUNTER → 2019-06-05 | Outpatient (CLI) | payer MEDICAID ==
[~2019-06-05] MED LIST changes: +OXYC1TAB23; -PERCOCET
== END ==
LOC: M OUTALCOH 08:04
PROVIDERS: ATTEND Psychiatry & Neurology Psychiatry
DX: F11.20 Opioid dependence, uncomplicated (principal); F15.20 Other stimulant dependence, uncomplicated; F14.20 Cocaine dependence, uncomplicated

== ENCOUNTER 2019-06-21 08:45 | Outpatient (RCR) | payer MEDICAID | END 2019-06-22 | LOC: M OUTALCOH 08:45 | PROVIDERS: ATTEND Psychiatry & Neurology Psychiatry | DX: F11.20 Opioid dependence, uncomplicated (principal); F15.20 Other stimulant dependence, uncomplicated; F14.20 Cocaine dependence, uncomplicated ==

== ENCOUNTER → 2019-07-22 | Outpatient (RCR) | payer MEDICAID | LOC: M OUTALCOH 06-26 14:59 | PROVIDERS: ATTEND Psychiatry & Neurology Psychiatry | DX: F11.20 Opioid dependence, uncomplicated (principal); F15.20 Other stimulant dependence, uncomplicated; F14.20 Cocaine dependence, uncomplicated ==

== ENCOUNTER 2019-08-21 10:00 | Outpatient (RCR) | payer MEDICAID ==
[~2019-08-21 10:00] MED LIST changes: -SERT-155; +SERT50TA29
== END 2019-08-22 ==
LOC: M OUTALCOH 10:00
PROVIDERS: ATTEND Psychiatry & Neurology Psychiatry
DX: F11.20 Opioid dependence, uncomplicated (principal); F15.20 Other stimulant dependence, uncomplicated; F14.20 Cocaine dependence, uncomplicated

== ENCOUNTER 2019-09-17 10:00 | Outpatient (RCR) | payer MEDICAID | END 2019-09-21 | LOC: M OUTALCOH 10:00 | PROVIDERS: ATTEND Psychiatry & Neurology Psychiatry | DX: F11.20 Opioid dependence, uncomplicated (principal); F15.20 Other stimulant dependence, uncomplicated; F14.20 Cocaine dependence, uncomplicated ==

== ENCOUNTER 2019-10-11 10:30 | Outpatient (RCR) | payer MEDICAID | END 2019-10-22 | LOC: M OUTALCOH 10:30 | PROVIDERS: ATTEND Psychiatry & Neurology Psychiatry | DX: F11.20 Opioid dependence, uncomplicated (principal); F15.20 Other stimulant dependence, uncomplicated; F14.20 Cocaine dependence, uncomplicated ==

== ENCOUNTER 2019-11-20 10:00 | Outpatient (RCR) | payer MEDICAID | END 2019-11-22 | LOC: M OUTALCOH 10:00 | PROVIDERS: ATTEND Psychiatry & Neurology Psychiatry | DX: F11.20 Opioid dependence, uncomplicated (principal); F15.20 Other stimulant dependence, uncomplicated; F14.20 Cocaine dependence, uncomplicated ==

== ENCOUNTER → 2019-11-26 | Outpatient (REF) ==
[2019-11-27 11:56] LABS: RUBELLA IgG QUALITATIVE IMMUNE (IMMUNE)
== END ==
LOC: M LAB 09:33
PROVIDERS: ATTEND Nurse Practitioner Adult Health
DX: Z02.1 Encounter for pre-employment examination (principal)

== ENCOUNTER → 2019-12-03 | Outpatient (REF) | payer OTHER | LOC: M PLALAB 14:11 | PROVIDERS: ATTEND Advanced Practice Midwife | DX: Z53.9 Procedure and treatment not carried out, unspecified reason (principal) ==

== ENCOUNTER → 2019-12-03 | Outpatient (CLI) | payer OTHER ==
[2019-12-03 18:02] LABS: BASO % 0.4 % (0.0-1.0); EOS # 0.1 10^3/uL (0.0-0.5); EOS % 1.2 % (0.0-3.0); HEMATOCRIT 38.1 % (36.0-47.0); HEMOGLOBIN 12.6 g/dl (12.0-15.5); LYMPH # 1.9 10^3/uL (1.5-5.0); LYMPH % 25.7 % (24.0-44.0); MEAN CORPUSCULAR HEMOGLOBIN 30.4 pg (27.0-33.0); MEAN CORPUSCULAR HGB CONC 33.1 g/dl (32.0-36.5); MEAN CORPUSCULAR VOLUME 91.8 fl (80.0-96.0); MONO # 0.5 10^3/uL (0.0-0.8); MONO % 6.7 % (0.0-5.0); NEUTROPHILS # 4.7 10^3/uL (1.5-8.5); NEUTROPHILS % 65.7 % (36.0-66.0); PLATELET COUNT, AUTOMATED 190 10^3/uL (150-450); RED BLOOD COUNT 4.15 10^6/uL (4.00-5.40); WHITE BLOOD COUNT 7.2 10^3/uL (4.0-10.0)
[2019-12-03 23:36] LABS: CHLAMYDIA DNA AMPLIFICATION NEGATIVE (NEGATIVE); GC DNA AMPLIFICATION NEGATIVE (NEGATIVE)
[2019-12-04 11:54] LABS: HIV 1&2 SCREEN CENTAUR NEGATIVE (NEGATIVE); RUBELLA IgG QUALITATIVE IMMUNE (IMMUNE)
[2019-12-04 11:59] LABS: HEPATITIS C VIRUS ABY INDEX > 11.0 INDEX (<0.8)
== END ==
LOC: M PLALAB 14:24
PROVIDERS: ATTEND Advanced Practice Midwife
DX: O34.219 Maternal care for unspecified type scar from previous cesarean delivery (principal); Z3A.00 Weeks of gestation of pregnancy not specified

== ENCOUNTER 2019-12-09 14:00 | Outpatient (RCR) | payer MEDICAID | END 2019-12-21 | LOC: M OUTALCOH 14:00 | PROVIDERS: ATTEND Psychiatry & Neurology Addiction Medicine | DX: F11.20 Opioid dependence, uncomplicated (principal); F15.20 Other stimulant dependence, uncomplicated; F14.20 Cocaine dependence, uncomplicated ==

== ENCOUNTER → 2020-01-29 | Outpatient (CLI) | payer OTHER ==
--- NOTE | 2020-01-29 20:30 | REP ---
OB ULTRASOUND: Real-time sonographic evaluation of the gravid uterus performed. There is a single living intrauterine gestation, estimated gestational age 20 weeks 4 days based on today ultrasound, EDC 06/13/2020. BPD 47 mm = 20 weeks 2 days HC 181 mm = 20 weeks 4 days AC 166 mm = 21 weeks 4 days FL 34 mm = 20 weeks 5 days HC/AC ratio 1.09, within normal range of 1.06 to 1.24. Estimated weight 400 grams, 67th percentile. Cervix is closed and measures 4.0 cm in length. heart rate 130 beats per minute. SEEN/GROSSLY UNREMARKABLE Lateral ventricles yes Posterior fossa yes Upper lip no Four-chamber heart yes. Echogenic focus left ventricle likely related to chordae tendineae. LVOT yes RVOT yes Stomach yes Cord insertion yes Three vessel cord yes Kidneys yes Bladder yes Spine no position: Transverse. Placenta: Anterior, fundal and grade 1 with no previa or abruption. Amniotic fluid: Within normal limits.
== END ==
LOC: M WHC 01-28 14:46
PROVIDERS: ATTEND Nurse Practitioner Women's Health
DX: Z34.92 Encounter for supervision of normal pregnancy, unspecified, second trimester (principal); Z3A.20 20 weeks gestation of pregnancy

== ENCOUNTER → 2020-02-11 | Outpatient (CLI) | payer OTHER ==
--- NOTE | 2020-02-12 04:31 | REP ---
Clinical: Anatomical evaluation. Comparison: 01/29/2020 . Findings: Examination demonstrates a single live intrauterine in cephalic presentation. motion is identified by technologist. Placenta is noted the anterior and grade I without evidence for placenta previa or abruption. Amniotic fluid volume is normal. Cervix measures 3.5 cm in length and appears closed. No evidence for nuchal cord. Gestational age by LMP 21 weeks 6 days with QUINTON 06/17/2020 . Gestational age by current measurements 21 weeks 5 day with QUINTON 06/18/2020 . FHR equals 133 beats per minute. Estimated weight 467 grams ( 48th percentile). Anatomical assessment demonstrates normal structures including cranium, facial features, four-chamber heart/ventricular outflow tracts, diaphragm, stomach, cord insertion/three-vessel cord, kidneys/bladder. Impression: Single live intrauterine in cephalic presentation demonstrating appropriate interval growth. Echogenic focus in the left cardiac ventricle consistent with prominent chordae tendineae again noted. Images of the spine are again limited due to positioning. Remainder of the anatomical assessment in conjunction with prior examination is complete.
== END ==
LOC: M WHC 14:41
PROVIDERS: ATTEND Advanced Practice Midwife
DX: O34.211 Maternal care for low transverse scar from previous cesarean delivery (principal); Z3A.21 21 weeks gestation of pregnancy

== ENCOUNTER → 2020-03-18 | Outpatient (CLI) | payer OTHER ==
--- NOTE | 2020-03-19 13:58 | REP ---
Clinical: Anatomical evaluation. Comparison: 02/11/2020 . Findings: Examination demonstrates a single live intrauterine in breech presentation. motion is identified by technologist. Placenta is noted anterior and grade I without evidence for placenta previa or abruption. Amniotic fluid volume is normal. Cervix measures 3.4 cm in length and appears closed. No evidence for nuchal cord. Gestational age by LMP 27 weeks 0 days with QUINTON 06/17/2020 . Gestational age by current measurements 27 weeks 6 days with QUINTON 06/11/2020 . FHR equals 153 beats per minute. Estimated weight 1247 grams ( 69th percentile). Anatomical assessment demonstrates normal structures including images of the spine and cardiac ventricular outflow tracts. Echogenic focus within the left cardiac ventricle again noted and consistent with prominent chordae tendineae. Impression: 1. Single live intrauterine in breech presentation demonstrating appropriate interval growth. 2. In conjunction with prior examination anatomical assessment is essentially complete. However, echogenic focus within the left cardiac ventricle is again noted.
== END ==
LOC: M WHC 15:09
PROVIDERS: ATTEND Advanced Practice Midwife
DX: Z36.2 Encounter for other antenatal screening follow-up (principal); Z3A.27 27 weeks gestation of pregnancy; O32.1XX0 Maternal care for breech presentation, not applicable or unspecified

== ENCOUNTER → 2020-04-10 | Outpatient (CLI) | payer OTHER ==
[2020-04-10 14:20] LABS: HEMATOCRIT 31.6 % (36.0-47.0); HEMOGLOBIN 10.8 g/dl (12.0-15.5); MEAN CORPUSCULAR HGB CONC 34.2 g/dl (32.0-36.5); MEAN CORPUSCULAR VOLUME 90.8 fl (80.0-96.0); PLATELET COUNT, AUTOMATED 148 10^3/uL (150-450); RED BLOOD COUNT 3.48 10^6/uL (4.00-5.40); WHITE BLOOD COUNT 7.7 10^3/uL (4.0-10.0)
[2020-04-10 15:01] LABS: FREE T4 1.3 NG/DL (0.76-1.46); THYROID STIMULATING HORMONE 1.56 uIU/ML (0.358-3.740)
[2020-04-10 18:14] LABS: TOTAL 25(OH) VITAMIN D 31.1 NG/ML (30.0-100.0)
== END ==
LOC: M LAB 12:26
PROVIDERS: ATTEND Advanced Practice Midwife
DX: O99.342 Other mental disorders complicating pregnancy, second trimester (principal); Z3A.25 25 weeks gestation of pregnancy

== ENCOUNTER → 2020-05-22 | Outpatient (REF) | payer OTHER ==
[~2020-05-22] MED LIST changes: +ACET-683 PO; +DOCU100C16 PO; +IBUP80TA PO; +PRENTAB9 PO; +ZOLO50TA PO; +subutex PO
== END ==
LOC: M SFHCWAGY 15:29
PROVIDERS: ATTEND Advanced Practice Midwife
DX: Z34.00 Encounter for supervision of normal first pregnancy, unspecified trimester (principal)

== ENCOUNTER → 2020-06-19 | Outpatient (CLI) | payer OTHER | LOC: M LABSMTC 10:37 | PROVIDERS: ATTEND Anesthesiology | DX: Z01.812 Encounter for preprocedural laboratory examination (principal) | CPT/HCPCS: C9803; U0003 ==

== ENCOUNTER 2020-06-21 16:51 | Outpatient (CLI) | payer OTHER ==
[~2020-06-21] VITALS: Ht 154.9 cm; Wt 105.0 kg
[~2020-06-21 16:51] MED LIST changes: -ACET-683 PO; -DOCU100C16 PO; -IBUP80TA PO; -PRENTAB9 PO; -ZOLO50TA PO; -subutex PO
[2020-06-21 17:11] VITALS: BP 135/92
[2020-06-21] MEDS ORDERED: ZOLO50TA PO (17:16)
[2020-06-21] MEDS ORDERED: PRENTAB9 PO (17:16)
[2020-06-21] MEDS ORDERED: subutex PO (17:20)
[2020-06-21 17:46] VITALS: BP 132/75
== END 2020-06-21 18:15 | disposition home or self-care (01) ==
LOC: M LDO 16:51
PROVIDERS: ATTEND Specialist
DX: O36.8130 Decreased fetal movements, third trimester, not applicable or unspecified (principal); Z3A.40 40 weeks gestation of pregnancy

== ENCOUNTER 2020-06-24 05:55 | Inpatient (IN) | payer OTHER ==
[~2020-06-24] VITALS: Ht 154.9 cm; Wt 105.4 kg
[~2020-06-24 05:55] MED LIST changes: +PRENTAB9 PO; +ZOLO50TA PO; +subutex PO
[2020-06-24] MEDS ORDERED: ceFAZolin SOD 2 GM in IV 1 EA IV ONE (06:30)
[2020-06-24] MEDS ORDERED: BICITRA 30ML SOLN UDC PO ONE (06:30)
[2020-06-24 06:41] LABS: HEMATOCRIT 35.2 % (36.0-47.0); HEMOGLOBIN 11.9 g/dl (12.0-15.5); MEAN CORPUSCULAR HEMOGLOBIN 30.8 pg (27.0-33.0); MEAN CORPUSCULAR HGB CONC 33.8 g/dl (32.0-36.5); MEAN CORPUSCULAR VOLUME 91.2 fl (80.0-96.0); PLATELET COUNT, AUTOMATED 161 10^3/uL (150-450); RED BLOOD COUNT 3.86 10^6/uL (4.00-5.40); WHITE BLOOD COUNT 9.7 10^3/uL (4.0-10.0)
[2020-06-24] MEDS ORDERED: MORPHINE PRES-FREE INJ 10 MG/10 ML VIAL (J2274) As Ordered ONE (07:14)
[2020-06-24] MEDS ORDERED: ONDANSETRON 4MG/2ML VIAL As Ordered ONE (07:15)
[2020-06-24] MEDS ORDERED: dexameTHASONE 4 MG/ML 1ML VIAL (J1100 PER 1MG) As Ordered ONE (07:15)
[2020-06-24] MEDS ORDERED: OXYTOCIN 30 UNITS IN 0.9% NaCl 500ML IV BAG (J2590) As Ordered ONE ×2 (07:15→09:52)
[2020-06-24] MEDS ORDERED: KETOROLAC 60MG 2ML VIAL As Ordered ONE (07:15)
[2020-06-24] MEDS ORDERED: LACTATED RINGER'S 1000 ML IV STA (07:26)
[2020-06-24] MEDS ORDERED: LR 1,000 ML IV SCH ×2 (07:26→10:00)
[2020-06-24] MEDS ORDERED: OXYTOCIN DRIP 30 UNITS in IV 1 EA IV SCH (08:16)
[2020-06-24] MEDS ORDERED: PHENYLephrine HCL 500 MCG/5 ML (100MCG/ML) SYRINGE (J2370) As Ordered ONE (08:20)
[2020-06-24] MEDS ORDERED: ePHEDrine SULFATE 25 MG/5 ML(5MG/ML) SYRINGE As Ordered ONE (08:20)
[2020-06-24] MEDS ORDERED: RHOGAM 300 MCG (1500 IU) INJ (J2790) IM SCH (08:30)
[2020-06-24] MEDS ORDERED: PERCOCET 5MG/325MG TAB PO PRN ×3 (08:30→10:00)
[2020-06-24] MEDS ORDERED: MEASLES,MUMPS,RUBELLA VACCINE INJ (MMR-II) (90707) SC SCH (08:30)
[2020-06-24] MEDS ORDERED: ONDANSETRON 4MG/2ML VIAL IV PRN ×2 (08:30→10:00)
[2020-06-24] MEDS ORDERED: MOM 30ML SUSPENSION UDC PO PRN (08:30)
--- NOTE | 2020-06-24 09:40 | ROOPDOC ---
[facility] Report Of Operation Report of Operation DATE OF PROCEDURE: 06/24/20 SURGEON: Lyric Hua M.D. CONTACT LENS FITTER: Manasa Oliva CNM PREOPERATIVE DIAGNOSIS: 1. History of prior section 2. Intrauterine at 41 weeks POSTOPERATIVE DIAGNOSIS: 1. History of prior section 2. Intrauterine at 41 weeks ANESTHESIA: Spinal ESTIMATED BLOOD LOSS: 600 mL URINE OUTPUT: 50 mL INTRAVENOUS FLUIDS: 1950 mL of lactated Ringer's solution PREOPERATIVE ANTIBIOTICS:. 2 g of Ancef OPERATIVE FINDINGS: Liveborn male infant, Apgars 9 and 9. Weight was 4450 g or 9 pounds 13oz SPECIMENS: Cord blood DESCRIPTION OF PROCEDURE: After informed consent was obtained and written consent was reviewed. The patient was brought to the operating room where spinal anesthesia was placed. She was then placed in the supine position with a left lateral tilt. New catheter was placed and to gravity. Patient was then prepped and draped in the normal sterile fashion. A timeout operating room was performed identifying the patient, procedure be performed as well as drug allergies. Anesthesia was tested and deemed to be adequate. Pfannenstiel skin incision was made and this was carried down to the underlying rectus fascia. The fascia was then scored and this incision was extended bilaterally. The fascia was then dissected off the underlying rectus muscle superiorly and inferiorly. The rectus muscles were then in the midline. The peritoneum is then entered. Vesicouterine peritoneum was then tented and excised and a bladder flap was created. Mobius retractor was then placed. Next, a curvilinear incision was then made in the lower uterine segment. Amniotomy was performed, productive, clear fluid. The head was brought to the level of the incision atraumatically and delivered along the shoulders and corpus. The cord was clamped x-2. The was brought over to the warmer with a good cry. Placenta was drained and delivered grossly intact. The uterus was cleared of all clots and debris and the uterine incision was then closed in 2 layers using 0 Vicryl, first in a running locking fashion followed by second layer for imbrication. The abdomen suctioned. Surgical sites reinspected and noted be hemostatic. The retractor was then removed. The anterior peritoneum was then reapproximated with 3-0 Vicryl. The rectus muscles were reapproximated 3-0 Vicryl. The fascia was then closed using 0 Vicryl in a running nonlocking fashion. The subcutaneous tissues was then irrigated and suctioned. Subcutaneous tissue was reapproximated using 3-0 Vicryl. Several subdermal stitch is placed using 3-0 Vicryl and the skin was closed with 4-0 Monocryl and subcuticular fashion. This incision was then cleaned and dried and was dressed. The patient was then taken to recovery in stable condition. All counts were correct. My surgical sales representative Evelyn Oliva played in an essential role during the operation. She assisted with tissue identification retraction, delivery of the , as well as wound closure. LYRIC HUA MD. Jun 24, 2020 09:40
[2020-06-24] MEDS ORDERED: fentaNYL 100 MCG/2 ML INJECTION (J3010) IV PRN (10:00)
[2020-06-24] MEDS ORDERED: METOCLOPRAMIDE INJ 10MG/2ML VIAL (J2765 PER 1) IV PRN (10:00)
[2020-06-24 11:20] VITALS: BP 124/70
[2020-06-24 11:55] VITALS: BP 140/70
[2020-06-24] MEDS ORDERED: PILL CUTTER 1 EACH XX PRN (12:15)
[2020-06-24] MEDS ORDERED: ENTER DRUG NAME HERE (PATIENT'S OWN MED) As Ordered ONE (12:26)
[2020-06-24] MEDS: LR 1,000 ML IV SCH ×2 (12:33→16:16)
[2020-06-24] MEDS: PRENATAL VITAMINS CHEWABLE TABLET PO SCH (12:33)
[2020-06-24] MEDS: BUPRENORPHINE 8MG TAB (PATIENT'S OWN MED) PO SCH (12:46)
[2020-06-24] MEDS: DOCUSATE SODIUM 100 MG CAP PO SCH ×2 (12:46→21:14)
[2020-06-24 12:55] VITALS: BP 127/76
[2020-06-24 13:55] VITALS: BP 126/68
[2020-06-24] MEDS: SERTRALINE HCL 25 MG TABLET PO SCH (14:03)
[2020-06-24] MEDS: KETOROLAC 30 MG/ML 1ML VIAL IV SCH ×2 (15:04→21:14)
[2020-06-24 18:00] VITALS: BP 132/65
[2020-06-24] MEDS ORDERED: LACTATED RINGER'S 1000 ML IV ONE (18:30)
[2020-06-24 21:51] LABS: AMPHETAMINES URINE REFLEX NEGATIVE (NEGATIVE); BARBITURATES URINE REFLEX NEGATIVE (NEGATIVE); CANNABINOIDS URINE REFLEX NEGATIVE (NEGATIVE); COCAINE METABOLITE URINE REFLE NEGATIVE (NEGATIVE); METHADONE URINE REFLEX NEGATIVE (NEGATIVE); PHENCYCLIDINE URINE REFLEX NEGATIVE (NEGATIVE)
[2020-06-24 22:00] VITALS: BP 131/70
[2020-06-24 22:12] LABS: BENZODIAZEPINES URINE REFLEX PENDING CONFIRMATION (NEGATIVE); OPIATES URINE REFLEX PENDING CONFIRMATION (NEGATIVE)
[2020-06-25] VITALS (7 sets, daily range): BP systolic 103–138; BP diastolic 53–72
[2020-06-25] MEDS: LR 1,000 ML IV SCH ×2 (02:39→04:41)
[2020-06-25] MEDS: KETOROLAC 30 MG/ML 1ML VIAL IV SCH (02:39)
[2020-06-25] MEDS ORDERED: LACTATED RINGER'S 1000 ML IV ONE (03:45)
[2020-06-25] MEDS: ACETAMINOPHEN 500 MG TAB PO PRN ×2 (05:55→18:07)
[2020-06-25 07:41] LABS: HEMATOCRIT 23.4 % (36.0-47.0); MEAN CORPUSCULAR HEMOGLOBIN 31.5 pg (27.0-33.0); MEAN CORPUSCULAR HGB CONC 33.8 g/dl (32.0-36.5); MEAN CORPUSCULAR VOLUME 93.2 fl (80.0-96.0); PLATELET COUNT, AUTOMATED 102 10^3/uL (150-450); RED BLOOD COUNT 2.51 10^6/uL (4.00-5.40); WHITE BLOOD COUNT 12.6 10^3/uL (4.0-10.0)
[2020-06-25 07:51] LABS: HEMOGLOBIN 7.9 g/dl (12.0-15.5)
[2020-06-25] MEDS ORDERED: INFLUENZA QUADRIVALENT PF VACCINE 0.5ML SYRINGE IM ONE (09:00)
[2020-06-25] MEDS: PRENATAL VITAMINS CHEWABLE TABLET PO SCH (09:45)
[2020-06-25] MEDS: DOCUSATE SODIUM 100 MG CAP PO SCH ×2 (09:45→19:34)
[2020-06-25] MEDS: SERTRALINE HCL 25 MG TABLET PO SCH (09:46)
[2020-06-25] MEDS ORDERED: ENTER DRUG NAME HERE (PATIENT'S OWN MED) As Ordered ONE (10:53)
[2020-06-25] MEDS: IBUPROFEN 800 MG TAB PO SCH ×2 (10:57→18:46)
[2020-06-25] MEDS: BUPRENORPHINE 8MG TAB (PATIENT'S OWN MED) PO SCH (10:57)
[2020-06-26 02:00] VITALS: BP 120/77
[2020-06-26] MEDS: IBUPROFEN 800 MG TAB PO SCH ×2 (02:49→12:10)
[2020-06-26 05:31] VITALS: BP 132/60
[2020-06-26] MEDS: PRENATAL VITAMINS CHEWABLE TABLET PO SCH (07:26)
[2020-06-26] MEDS: DOCUSATE SODIUM 100 MG CAP PO SCH (07:26)
[2020-06-26] MEDS: SERTRALINE HCL 25 MG TABLET PO SCH (07:27)
[2020-06-26] MEDS: ACETAMINOPHEN 500 MG TAB PO PRN (07:28)
[2020-06-26] MEDS ORDERED: DOCU100C16 PO (07:56)
[2020-06-26] MEDS ORDERED: ACET-683 PO (07:56)
[2020-06-26] MEDS ORDERED: IBUP80TA PO (07:56)
--- NOTE | 2020-06-26 08:02 | DS.PDOC ---
Discharge Summary General Date of Admission Jun 24, 2020 at 05:55 Date of Discharge 06/26/2020 Attending Physician: ABDOUL RIZO MD. Discharge Summary PROCEDURES PERFORMED DURING STAY: Repeat section. ADMITTING DIAGNOSES: 1. Previous section. 2. Intrauterine at 41wks DISCHARGE DIAGNOSES: 1. Repeat section. 2. Intrauterine at 41wks COMPLICATIONS/CHIEF COMPLAINT: Previous Section. HISTORY OF PRESENT ILLNESS: 2 now Para 2 admitted 06/24/2020 for repeat section. HOSPITAL COURSE: Out of bed independently. Adequate pain management. Tolerating diet. Voiding and passing flatus. DISCHARGE MEDICATIONS: Please see below. ALLERGIES: Please see below. PHYSICAL EXAMINATION ON DISCHARGE: VITAL SIGNS: Please see below. GENERAL: No distress. VSS, afebrile, normotensive. HEENT: WNL NECK: Supple CARDIOVASCULAR EXAMINATION: HRR, normotensive RESPIRATORY EXAMINATION: Clear and unlabored ABDOMINAL EXAMINATION: Fundus firm, dressing intact. Old drainage marked. No new drainage noted. EXTREMITIES: Equal strength and motion. SKIN: Intact NEUROLOGICAL EXAMINATION: Grossly intact PSYCHIATRIC EXAMINATION: Appropriate. Upset due to conflicting urine tox screens LABORATORY DATA: Please see below. PROGNOSIS: Good ACTIVITY: As tolerated. DIET: As tolerated DISCHARGE PLAN: Home today. DISPOSITION: Home . DISCHARGE INSTRUCTIONS: 1. Routine care and precautions. Remove dressing day 5. 2. Oral medications as ordered 3. Pelvic rest x 6 weeks 4. Call with fever, nausea, vomiting, wound exudate, foul lochia. DISCHARGE CONDITION: Stable. TIME SPENT ON DISCHARGE: Greater than 10 minutes. Vital Signs/I&Os Vital Signs Date Time Temp Pulse Resp B/P (MAP) Pulse Ox O2 Delivery O2 Flow Rate FiO2 06/26/20 05:31 97.6 90 20 132/60 (84) 100 Room Air I&O- Last 24 Hours up to 6 AM 06/26/20 06:00 Output Total 1050 ml Balance -1050 ml Discharge Medications Scheduled Docusate Sodium (Docusate Sodium) 100 Mg Capsule, 100 MG PO BID Ibuprofen (Ibuprofen) 800 Mg Tablet, 800 MG PO Q8H No.137/Iron/Folic Acd ( Vitamin Tablet) 1 Each Tablet, 1 TAB PO DAILY, (Reported) Sertraline Hcl (Zoloft) 50 Mg Tablet, 75 MG PO DAILY, (Reported) [subutex] , 12 PO DAILY, (Reported) Scheduled PRN Acetaminophen (Acetaminophen) 500 Mg Tablet, 1,000 MG PO Q6HP PRN for PAIN / FEVER Allergies Coded Allergies: acetazolamide (Verified Allergy, Mild, feet, nose, lips tingle, 06/22/20) ciprofloxacin (Verified Allergy, Unknown, 06/22/20) ABDOUL IRZO MD. Jun 26, 2020 08:02 Aurea Kinney CNM Jun 26, 2020 12:15
[2020-06-26] MEDS ORDERED: INFLUENZA QUADRIVALENT PF VACCINE 0.5ML SYRINGE IM ONE (09:00)
[2020-06-26] MEDS ORDERED: ENTER DRUG NAME HERE (PATIENT'S OWN MED) As Ordered ONE ×3 (12:08→13:58)
[2020-06-26] MEDS: BUPRENORPHINE 8MG TAB (PATIENT'S OWN MED) PO SCH (12:11)
[2020-07-02 04:07] LABS: Benzodiazepines Negative (Cutoff=300); Codeine Negative (Cutoff=200); GC Morphine 294 ng/mL (Cutoff=200); Morphine Positive (.); Opiates Positive (.)
== END 2020-06-26 17:00 | disposition home or self-care (01) | DRG 540 ==
LOC: M LDI 05:55 → M OBS 11:00
PROVIDERS: ADMIT Obstetrics & Gynecology; ATTEND Obstetrics & Gynecology
PROC: 10D00Z1 Extraction of Products of Conception, Low, Open Approach (ICD-10-PCS; principal; 2020-06-24 07:30)
DX: O34.211 Maternal care for low transverse scar from previous cesarean delivery (principal); Z37.0 Single live birth; Z3A.41 41 weeks gestation of pregnancy; O48.0 Post-term pregnancy; Z88.8 Allergy status to other drugs, medicaments and biological substances

== ENCOUNTER → 2022-02-04 | Outpatient (CLI) | payer MEDICAID ==
[~2022-02-04] MED LIST changes: +ACET-683 PO; +DOCU100C16 PO; -FLUC150T PO; +FLUC150T9 PO; +IBUP80TA PO
== END ==
LOC: M OUTALCOH 09:36
PROVIDERS: ATTEND Psychiatry & Neurology Psychiatry
DX: Z02.9 Encounter for administrative examinations, unspecified (principal)

== ENCOUNTER 2022-02-18 08:40 | Outpatient (RCR) | payer MEDICAID | END 2022-02-19 | LOC: M OUTALCOH 08:40 | PROVIDERS: ATTEND Psychiatry & Neurology Psychiatry | DX: F11.20 Opioid dependence, uncomplicated (principal); F14.20 Cocaine dependence, uncomplicated; F13.20 Sedative, hypnotic or anxiolytic dependence, uncomplicated; F17.200 Nicotine dependence, unspecified, uncomplicated ==

== ENCOUNTER 2022-03-18 10:00 | Outpatient (RCR) | payer MEDICAID ==
[~2022-03-18 10:00] MED LIST changes: +ALBU2.5V10; -ALBU83IN
== END 2022-03-22 ==
LOC: M OUTALCOH 10:00
PROVIDERS: ATTEND Psychiatry & Neurology Psychiatry
DX: F11.20 Opioid dependence, uncomplicated (principal); F17.200 Nicotine dependence, unspecified, uncomplicated

== ENCOUNTER → 2022-04-21 | Outpatient (RCR) | payer MEDICAID | LOC: M OUTALCOH 03-23 08:04 | PROVIDERS: ATTEND Psychiatry & Neurology Psychiatry | DX: F11.20 Opioid dependence, uncomplicated (principal); F17.200 Nicotine dependence, unspecified, uncomplicated; F14.20 Cocaine dependence, uncomplicated ==

== ENCOUNTER 2022-05-18 09:00 | Outpatient (RCR) | payer MEDICAID | END 2022-05-22 | LOC: M OUTALCOH 09:00 | PROVIDERS: ATTEND Psychiatry & Neurology Psychiatry | DX: F11.20 Opioid dependence, uncomplicated (principal); F17.200 Nicotine dependence, unspecified, uncomplicated; F14.20 Cocaine dependence, uncomplicated ==

== ENCOUNTER 2022-05-19 09:00 | Outpatient (RCR) | payer MEDICAID | END 2022-05-22 | LOC: M OUTALCOH 09:00 | PROVIDERS: ATTEND Psychiatry & Neurology Psychiatry | DX: F11.20 Opioid dependence, uncomplicated (principal); F17.200 Nicotine dependence, unspecified, uncomplicated; F14.20 Cocaine dependence, uncomplicated ==

== ENCOUNTER → 2022-06-13 | Outpatient (REF) | payer OTHER | LOC: M PLALAB 17:04 | PROVIDERS: ATTEND Nurse Practitioner Family | DX: Z12.4 Encounter for screening for malignant neoplasm of cervix (principal) ==

== ENCOUNTER 2022-06-20 16:00 | Outpatient (RCR) | payer MEDICAID | END 2022-06-22 | LOC: M OUTALCOH 16:00 | PROVIDERS: ATTEND Psychiatry & Neurology Psychiatry | DX: F11.20 Opioid dependence, uncomplicated (principal); F14.20 Cocaine dependence, uncomplicated; F13.20 Sedative, hypnotic or anxiolytic dependence, uncomplicated; F17.200 Nicotine dependence, unspecified, uncomplicated ==

== ENCOUNTER 2022-07-20 14:00 | Outpatient (RCR) | payer MEDICAID | END 2022-07-22 | LOC: M OUTALCOH 14:00 | PROVIDERS: ATTEND Psychiatry & Neurology Psychiatry | DX: F11.20 Opioid dependence, uncomplicated (principal); F17.200 Nicotine dependence, unspecified, uncomplicated; F14.20 Cocaine dependence, uncomplicated ==

== ENCOUNTER 2022-08-17 14:00 | Outpatient (RCR) | payer MEDICAID | END 2022-08-22 | LOC: M OUTALCOH 14:00 | PROVIDERS: ATTEND Psychiatry & Neurology Psychiatry | DX: F11.20 Opioid dependence, uncomplicated (principal); F14.20 Cocaine dependence, uncomplicated; F13.20 Sedative, hypnotic or anxiolytic dependence, uncomplicated; F17.200 Nicotine dependence, unspecified, uncomplicated ==

== ENCOUNTER → 2022-08-18 | Outpatient (CLI) | payer MEDICAID ==
[2022-08-18 20:22] LABS: ALBUMIN 3.9 GM/DL (3.2-5.2); ALT/SGPT 23 U/L (12-78); BILIRUBIN,DIRECT < 0.1 MG/DL (0.0-0.2); BILIRUBIN,TOTAL 0.2 MG/DL (0.2-1.0); TOTAL PROTEIN 7.2 GM/DL (6.4-8.2)
[2022-08-20 15:42] LABS: HEPATITIS C QUANTITATION HCV Not Detected IU/mL (.)
== END ==
LOC: M PLALAB 14:35
PROVIDERS: ATTEND Internal Medicine Infectious Disease
DX: B18.2 Chronic viral hepatitis C (principal)

== ENCOUNTER → 2022-09-21 | Outpatient (RCR) | payer MEDICAID | LOC: M OUTALCOH 14:18 | PROVIDERS: ATTEND Psychiatry & Neurology Psychiatry | DX: F11.20 Opioid dependence, uncomplicated (principal); F17.200 Nicotine dependence, unspecified, uncomplicated ==

== ENCOUNTER → 2023-09-22 | Outpatient (REF) | payer MEDICAID, OTHER | LOC: M SFHCWAGY 17:18 | PROVIDERS: ATTEND Nurse Practitioner Family | DX: Z12.4 Encounter for screening for malignant neoplasm of cervix (principal) ==

== ENCOUNTER → 2023-10-09 | Outpatient (REF) | payer MEDICAID, OTHER ==
[2023-10-09 18:38] LABS: HEMATOCRIT 40.7 % (36.0-47.0); HEMOGLOBIN 13.5 g/dl (12.0-15.5); MEAN CORPUSCULAR HEMOGLOBIN 30.7 pg (27.0-33.0); MEAN CORPUSCULAR HGB CONC 33.2 g/dl (32.0-36.5); MEAN CORPUSCULAR VOLUME 92.5 fl (80.0-96.0); PLATELET COUNT, AUTOMATED 190 10^3/uL (150-450); WHITE BLOOD COUNT 5.2 10^3/uL (4.0-10.0)
[2023-10-09 18:59] LABS: ALBUMIN 4.2 G/DL (3.2-5.2); ALKALINE PHOSPHATASE 36 U/L (46-116); ALT/SGPT 18 U/L (7.0-40); AST/SGOT 18 U/L (<34); BILIRUBIN,TOTAL 0.5 MG/DL (0.3-1.2); BLOOD UREA NITROGEN 14 MG/DL (9-23); CALCIUM LEVEL 9.3 MG/DL (8.5-10.1); CARBON DIOXIDE LEVEL 27 MMOL/L (20-31); CHLORIDE LEVEL 107 MMOL/L (98-107); CREATININE FOR GFR 0.82 MG/DL (0.55-1.30); GLOMERULAR FILTRATION RATE > 60.0 (>60); GLUCOSE, FASTING 79 MG/DL (60-100); POTASSIUM SERUM 4.5 MMOL/L (3.5-5.1); SODIUM LEVEL 138 MMOL/L (136-145)
[2023-10-11 23:10] LABS: HEPATITIS C QUANTITATION HCV Not Detected IU/mL (.)
== END ==
LOC: M LAB REF 16:41
PROVIDERS: ATTEND Family Medicine Addiction Medicine
DX: B19.20 Unspecified viral hepatitis C without hepatic coma (principal)

== ENCOUNTER → 2023-11-13 | Outpatient (REF) | payer MEDICAID, OTHER ==
[2023-11-13 17:30] LABS: FREE T4 1.04 NG/DL (0.89-1.76); THYROID STIMULATING HORMONE 2.073 uIU/ML (0.55-4.78)
== END ==
LOC: M LAB REF 16:52
PROVIDERS: ATTEND Family Medicine Addiction Medicine
DX: R63.5 Abnormal weight gain (principal)

== ENCOUNTER 2023-12-29 23:37 | Emergency (ER) | payer MEDICAID, OTHER ==
[2023-12-29] MEDS ORDERED: NS 1,000 ML IV ONE (23:55)
[2023-12-30 01:05] VITALS: BP 132/76; TEMP 97.5; O2SAT 8
== END 2023-12-30 01:06 | disposition home or self-care (01) ==
LOC: M ED 23:37
DX: F14.121 Cocaine abuse with intoxication with delirium (principal); F17.200 Nicotine dependence, unspecified, uncomplicated; Z88.1 Allergy status to other antibiotic agents; Z88.8 Allergy status to other drugs, medicaments and biological substances; Z79.83 Long term (current) use of bisphosphonates; Z79.810 Long term (current) use of selective estrogen receptor modulators (SERMs); Z79.899 Other long term (current) drug therapy

== ENCOUNTER 2024-05-26 18:53 | Emergency (ER) | payer OTHER ==
[~2024-05-26] VITALS: Ht 152.4 cm; Wt 90.7 kg
[2024-05-26 20:53] VITALS: BP 132/78; TEMP 98.8; O2SAT 100
== END 2024-05-26 20:54 | disposition home or self-care (01) ==
LOC: M ED 18:53
DX: T78.1XXA Other adverse food reactions, not elsewhere classified, initial encounter (principal); R20.2 Paresthesia of skin; G43.909 Migraine, unspecified, not intractable, without status migrainosus; F17.200 Nicotine dependence, unspecified, uncomplicated; Z87.442 Personal history of urinary calculi; Z88.1 Allergy status to other antibiotic agents; Z88.8 Allergy status to other drugs, medicaments and biological substances; Z79.899 Other long term (current) drug therapy; Z79.1 Long term (current) use of non-steroidal anti-inflammatories (NSAID)